=== PATIENT | female | born 2000 | race Native Hawaiian/Other Pacific Islander ===

== ENCOUNTER 2023-04-07 23:22 | Emergency (ER) | payer OTHER ==
[~2023-04-07] VITALS: Ht 165.1 cm; Wt 109.1 kg
[2023-04-08] MEDS ORDERED: LIDOCAINE 2% 6 ML JELLY TP ONE (00:30)
[2023-04-08 01:30] VITALS: BP 127/80; PULSE 84; RESP 16; TEMP 97.3
== END 2023-04-08 03:16 | disposition home or self-care (01) ==
LOC: EMS 23:24
DX: T16.2XXA Foreign body in left ear, initial encounter (principal); X58.XXXA Exposure to other specified factors, initial encounter; Y93.89 Activity, other specified; Y92.89 Other specified places as the place of occurrence of the external cause; Y99.8 Other external cause status
CPT/HCPCS: 99284; 69200; Q9967; Z7502